=== PATIENT | female | born 1980 | race African-American/Black ===

== ENCOUNTER 2025-04-26 07:30 | Emergency (ER) | payer BC, SELFPAY ==
[2025-04-26 07:32] VITALS: BP 116/82
--- NOTE | 2025-04-26 07:55 | ED.GENMED ---
History of Present Illness
General
Chief Complaint: Flank Pain
Source: patient
Time Seen by Provider: 04/26/25 07:44
History of Present Illness
History of Present Illness:
44-year-old female with past medical history of asthma presenting to the emergency department for evaluation of waxing and waning right-sided flank pain that has been ongoing for around 1 week, waxes and wanes without any specific reason,
nonreproducible with movement or deep inspiration, no reported alleviating factors and without any other symptoms associated other than today when she woke up noticed pain in her right proximal gastrocnemius prompting her come to the ER stating she
was concern for possible DVT. She notes father had a history of 'blood clots' but notes he had a history of sickle cell disease. Patient does state that she has been driving in her car more recently but states no recent air travel, no oral
contraceptive use, no fevers or recent illnesses, no cough, no pleurisy, no hemoptysis or any other concerns. Social history was otherwise noncontributory. Patient states that at the beginning of her right flank pain she did come some Tylenol but
states that this did not give her any relief
Past History
Past History
ED Past Medical History: Asthma
ED Past Surgical History: Other
Social History
Tobacco: Non-smoker
Alcohol: None
Drug: None
Review of Systems
Review of Systems
All Other Systems: ROS reviewed and negative except as documented in HPI and ROS
Phy Exam
Physical Exam
Physical Exam:
GENERAL: Alert , in no apparent distress
HEAD: Normocephalic atraumatic
EYE: clear conjunctiva
NECK: Supple
ENT: o/p clr, mmm.
CARDIAC: Regular rate and rhythm .
LUNGS: Clear breath sounds bilaterally, no acute respiratory distress, no wheezes/rales/rhonchi
ABDOMEN: Soft, without focal tenderness, no r/g, no cvat
NEUROLOGICAL: Alert and oriented
SKIN: Warm and dry, skin intact.
MUSCULOSKELETAL: No edema, well perfused. No obvious edema to the bilateral lower extremities
PSYCH: Normal and appropriate interaction.
Scores
Heart Failure Risk
Heart Failure Risk Score: Not Applicable
Heart Score for Chest Pain Patients
STEMI patient?: Not applicable
Withdrawal Assessment of Alcohol
Withdrawal Assessment Completed?: Not applicable
Course
Orders/Labs/Results
Orders:
Orders
04/26/25 07:54
US Periph Venous LOWER Ext RT Urgent
Comment:
Reason For Exam: lower leg pain
04/26/25 08:13
Complete Blood Count/With Diff Urgent
Comprehensive Metabolic Panel Urgent
Lipase Urgent
Urinalysis Reflex To Culture Urgent
Date Specimen was Collected: 04/26/25
Time Specimen was Collected: 08:03
Urine Microscopic Reflex Cult Urgent
04/26/25 08:54
CT Chest PE Study Urgent
Comment:
Reason For Exam: right flank pain, known DVT
04/26/25 09:49
Case Management Consult ONCE
Case Management Consult: Discharge Planning
Comment: Patient wants 'resources' but would not elaborate
Abnormal Lab Results
04/26/25
08:13
RBC 4.06 L 10^6/uL
(4.20-5.40)
Hgb 8.6 L g/dL
(12.0-16.0)
Hct 27.9 L %
(37.0-47.0)
MCV 68.7 L fL
(81.0-99.0)
MCH 21.2 L pg
(27.0-31.0)
MCHC 30.8 L g/dL
(33.0-37.0)
RDW 17.4 H %
(11.5-14.5)
Plt Count 416 H 10^3/uL
(130-400)
Monocytes % 9.6 H %
(1.7-9.3)
Ur Occult Blood Reflex 2+ A
(Negative)
Urine Bacteria (Reflex) Few A
(Negative)
Urine Albumin (Reflex) 1+ A
(Neg - Trace)
04/26/25 08:13
04/26/25 08:13
Vital Signs
Initial and Last Documented VS:
Initial Vital Signs
Temp Pulse Resp BP Pulse Ox
98.5 F 84 18 116/82 98
04/26/25 07:32 04/26/25 07:32 04/26/25 07:32 04/26/25 07:32 04/26/25 07:32
Last Documented Vital Signs
Temp Pulse Resp BP Pulse Ox
98.5 F 81 18 118/86 100
04/26/25 07:32 04/26/25 09:54 04/26/25 07:32 04/26/25 09:46 04/26/25 09:46
MDM/Problems Addressed
Differential Diagnosis Includes:
DVT
PE
UTI/Pyelo/Cystitis
Renal/Ureteral colic
Musculoskeletal back pain
No symptoms to suggest ACS
Electrolyte imbalance
MDM/Problems Addressed:
44-year-old female presenting to the ER for evaluation of right-sided flank pain has been ongoing for 1 week, currently very minimal, patient stating her main concern is possible DVT to her right lower extremity as she is now experiencing pain to
the affected area. Patient has risk factor including family history but otherwise no other risk factors. There is no tachycardia, tachypnea, respiratory symptoms, chest pain or any other symptoms that would make me suspect PE as a possible
diagnosis. Will obtain lab. Ultrasound to rule out DVT ordered. If ultrasound does confirm positive then patient would need CTA to rule out PE as a diagnosis. Disposition pending.
*Radiology
Radiology exam reviewed: radiology read reviewed
*Pulse Oximetry
SaO2: 98
Oxygen Mode of Delivery: Room air
Patient hypoxic: no
*Critical Care Note
Total Time (30-74mins, 75-104mins- exclusive of procedures): Not Applicable
Comment
Comment:
Patient's ultrasound was notified to be positive for DVT with a nonocclusive thrombus in the right popliteal vein and occlusive thrombus within the small saphenous vein. Given the flank pain I did order a CT chest PE study. Disposition pending
Patient Management
Discussion with other providers: PCP
Escalation/DeEscalation of care consider admission/obs:
PE study was negative for acute finding/pulmonary embolism. I discussed these results with the patient as well as contacted the primary care provider to discuss these results. They note that patient's last hemoglobin in June 2024 was negative
for anemia with a hemoglobin of 12. Patient's primary care providers can be out of the country next week, they provided me with information for event staff member they would like the patient to follow-up with and I gave the patient this information. I
also faxed reports and blood work to the primary care provider and expressed that patient should have repeat labs done in 1 to 2 weeks given we are starting her on an anticoagulant with her reportedly new her anemia. Patient was advised on return
precautions to the emergency department.
Prior to discharge patient was also requesting a case management consult as she was hoping to get 'resources' but would not further elaborate. Case management was able to evaluate the patient. She is ultimately stable for discharge home.
ED Attending Note
-
Portions of this chart may have been created with voice recognition software.� Occasional wrong word or��sound alike� substitutions may have occurred due to the inherent limitations of voice recognition software.
Discharge Plan
Departure
Patient Disposition: Home (Routine Discharge)
Date of Disposition: 04/26/25
Time of Disposition: 10:10
Patient with high blood pressure during this ER visit?: No
Discharge Problem:
Deep vein thrombosis (DVT) of right lower extremity, Anemia
Instructions: Deep vein thrombosis (DVT) - ED (DC)
Prescriptions:
New
Eliquis 5 mg tablet
5 mg PO BID Qty: 70 0RF
Rx Instructions:
Take 10mg BID x 7 days, Take 5mg BID x 21 days
Referrals:
Mary Jane Regalado MD [Family Provider, Internal Medicine]
Interventions
Interventions:
*Risk Screen - Suicide Last Done: 04/26/25 07:32
*General Assessment Last Done: 04/26/25 07:32
*Neglect/Abuse Screening Last Done: 04/26/25 07:32
*ED COVID-19 Vaccine History Last Done: 04/26/25 07:32
*Nursing Disposition Last Done: 04/26/25 11:20
MS-Jxmaqx-Bqxaburkcr Assessment Last Done: 04/26/25 11:19
Discharge Date and Time
Discharge Date/Time: 04/26/25 11:10
Print Language: ROMANIAN
[2025-04-26 08:06] VITALS: BMI 27.9
[2025-04-26 08:24] LABS: Hematocrit 27.9 % (37.0-47.0); Hemoglobin 8.6 g/dL (12.0-16.0); Mean Corp Hgb Conc. 30.8 g/dL (33.0-37.0); Mean Corpuscular Volume 68.7 fL (81.0-99.0); Nucleated Red Blood Cells % 0 %; Platelet Count 416 10^3/uL (130-400); Red Cell Dist. Width 17.4 % (11.5-14.5)
[2025-04-26 08:25] LABS: Urine Character Clear (Clear)
[2025-04-26 08:40] LABS: ALT (SGPT) 17 U/L (0-35); AST (SGOT) 23 U/L (14-36); Albumin 4.2 g/dl (3.5-5.0); Alkaline Phosphatase 82 U/L (38-126); Blood Urea Nitrogen 8 mg/dl (7-17); Calcium 8.5 mg/dl (8.4-10.2); Carbon Dioxide 25 mmol/L (22-30); Chloride 107 mmol/L (98-107); Estimated Creatinine Clearance 81 ml/min; Glucose 90 mg/dl (70-99); Lipase 137 U/L (23-300); Potassium 4.5 mmol/L (3.5-5.1); Sodium 138 mmol/L (135-145); Total Protein 7.4 g/dl (6.3-8.2); eGFR > 60.00
[2025-04-26 08:44] LABS: Urine Red Blood Cell 0-2 /HPF (0-2); Urine Squamous Cell 16-20 /LPF (Few)
[2025-04-26 09:46] VITALS: BP 118/86
--- NOTE | 2025-04-26 10:59 | CM ---
Received consult, reviewed chart and met with pt bedside in ED. Pt states she is currently homeless, she has secured an apartment in [place] and is working on coming up with the deposit needed. She told me she does not have anyone to help her,
her father and her mother and sister live together and are both disabled. Her partner lives in [place] and cannot assist at this time. Rosibel cannot move to [place] as her job is here. She is doing rideshare on the side to help with
finances. She asked if there were any resources to help with deposit assistance.
I gave her information for [email or web address], [facility], and [facility] information. I told her I was not sure if they could help with deposit assistance but suggested she reach out to ask, she was very
appreciative.
She has my number for any additional questions.
== END 2025-04-26 11:10 | disposition home or self-care (01) ==
LOC: EMR 07:30
PROVIDERS: Physician Assistant Medical; EMERGENCY PHYSICIAN Emergency Medicine; FAMILY PHYSICIAN Student in an Organized Health Care Education/Training Program
DX: I82.431 Acute embolism and thrombosis of right popliteal vein (principal); D64.9 Anemia, unspecified; J45.909 Unspecified asthma, uncomplicated
CPT/HCPCS: 99284; 71275; 80053; 81003; 81015; 83690; 85025; 93971; Q9967